=== PATIENT | male | born 1940 | race African-American/Black ===

== ENCOUNTER 2022-10-03 01:25 | Inpatient (IN) | payer OTHER ==
[2022-10-03] MEDS ORDERED: ALBUTEROL SO4 0.083% IH SOL 2.5 MG/3 ML VIAL.NEB. NEB ONE (01:40)
[2022-10-03] MEDS ORDERED: LACTATED RINGERS SOLUTION 1000 ML INFUS.BAG IV ONE (01:42)
[2022-10-03] MEDS ORDERED: PIPERACILLIN/TAZOB 3.375 GM 3.375 GM in DEXTROSE 5%-WATER - 50 ML IVPB ONE (01:42)
[2022-10-03] MEDS ORDERED: ACETAMINOPHEN 1000 MG/100 ML BAG IVPB ONE (01:44)
[2022-10-03] MEDS ORDERED: ALBUTEROL SO4 2.5/IPRATROPIUM 0.5 INH SOL 3 ML VIAL.NEB. NEB ONE (02:11)
[2022-10-03 02:21] LABS: VENOUS BASE EXCESS 1.9 mmol/L (-2-2); VENOUS PCO2 57.3 mmHg (38-52); VENOUS PH 7.331 (7.310-7.410)
[2022-10-03] MEDS ORDERED: ACETAMINOPHEN INJECTION 100 ML IVPB ONE (02:26)
[2022-10-03] MEDS ORDERED: PIPERACILLIN/TAZOB 3.375 GM 3.375 GM/50 ML BAG IVPB ONE (02:26)
[2022-10-03] MEDS ORDERED: VANCOMYCIN/WATER FOR INJ (PEG) 1,000 MG/200 ML BAG IVPB ONE (02:26)
[2022-10-03] MEDS: VANCOMYCIN 1 GM in D5W (PRE-DOCKED) 1,000 MG/250 ML (RESTRICTED TO ID ONLY IVPB ONE ×2 (02:32→02:45)
[2022-10-03 02:33] LABS: BASO % 0.1 % (0-2.0); HEMATOCRIT 50.1 % (35.4-49); HEMOGLOBIN 16.4 GM/dL (11.7-16.9); LYMPH % 6.9 % (8-40); MCH 29.6 pg (25.7-33.7); MCHC 32.8 g/dl (32.0-35.9); MEAN PLT VOLUME 9.5 fl (7.5-11.1); MONO % 8.6 % (3.8-10.2); NEUT % 84.4 % (42.8-82.8); PLATELET COUNT 300 10^3/uL (134-434); RBC 5.57 M/mm3 (4.00-5.60); RDW 16.8 % (11.9-15.9); WHITE BLOOD COUNT 6.4 K/mm3 (4.0-10.0)
[2022-10-03] MEDS ORDERED: MORPHINE 100 MG/100 ML MG ONE (02:38)
[2022-10-03 02:40] LABS: INR 1.82 (0.83-1.09)
[2022-10-03] MEDS ORDERED: GLYCOPYRROLATE 0.2 MG/1 ML VIAL IM PRN (02:40)
[2022-10-03 02:42] LABS: ACTIVATED PTT 32.9 SECONDS (25.2-36.5)
[2022-10-03] MEDS ORDERED: MORPHINE 100 MG/100 ML MG IVPB SCH (02:45)
[2022-10-03 02:52] LABS: POTASSIUM 4.9 mmol/L (3.5-5.1)
[2022-10-03 02:54] LABS: CALCIUM 10.6 mg/dL (8.5-10.1)
[2022-10-03] MEDS ORDERED: GLYCOPYRROLATE 0.2 MG/1 ML VIAL ONE (02:54)
[2022-10-03 02:55] LABS: ALBUMIN 3.4 g/dl (3.4-5.0); BLOOD UREA NITROGEN 49.2 mg/dL (7-18)
[2022-10-03 02:58] LABS: CREATININE 2.2 mg/dL (0.55-1.3)
[2022-10-03 02:59] LABS: BILIRUBIN,TOTAL 0.8 mg/dL (0.2-1)
[2022-10-03 03:00] LABS: TOT PROT 8.7 g/dl (6.4-8.2)
[2022-10-03 03:11] VITALS: BMI 23.4
[2022-10-03 16:55] VITALS: BP 52/41; PULSE 62; RESP 130; TEMP 100.8
== END 2022-10-03 16:25 | disposition expired | DRG 951 ==
LOC: JER 01:25 → JERBED 03:29 → J8W 05:42
PROVIDERS: ADMIT Internal Medicine; ATTEND Family Medicine
DX: Z51.5 Encounter for palliative care (principal); J18.9 Pneumonia, unspecified organism; I69.354 Hemiplegia and hemiparesis following cerebral infarction affecting left non-dominant side; R50.9 Fever, unspecified; R00.0 Tachycardia, unspecified; F03.90 Unspecified dementia, unspecified severity, without behavioral disturbance, psychotic disturbance, mood disturbance, and anxiety; G20 Parkinson's disease; I95.9 Hypotension, unspecified; R09.02 Hypoxemia; Z71.89 Other specified counseling; Z89.512 Acquired absence of left leg below knee; Z66 Do not resuscitate
CPT/HCPCS: 0241U-QW; 36415; 71045-TC-FY; 80053; 82550; 82553; 82803; 84484; 85025; 85610; 85730; 86900; 87040; 93005; 93010; 99285-25